=== PATIENT | male | born 1980 | race African-American/Black ===

== ENCOUNTER 2020-09-18 11:50 | Emergency (ER) | payer MEDICAID ==
[~2020-09-18] VITALS: Ht 182.9 cm; Wt 80.0 kg
[2020-09-18 12:19] VITALS: BP 125/82
== END 2020-09-18 13:23 | disposition home or self-care (01) ==
LOC: ER 11:51
DX: Z02.89 Encounter for other administrative examinations (principal); F15.90 Other stimulant use, unspecified, uncomplicated; F11.90 Opioid use, unspecified, uncomplicated
CPT/HCPCS: 99281

== ENCOUNTER → 2020-10-02 | Emergency (ER) | payer MEDICAID | END | disposition left against medical advice (07) | LOC: ER 15:03 | DX: Z02.89 Encounter for other administrative examinations (principal); F15.90 Other stimulant use, unspecified, uncomplicated; M54.89 Other dorsalgia; F12.90 Cannabis use, unspecified, uncomplicated; F11.90 Opioid use, unspecified, uncomplicated; Z72.89 Other problems related to lifestyle | CPT/HCPCS: 99283 ==

== ENCOUNTER 2020-10-07 10:00 | Emergency (ER) | payer MEDICAID ==
[~2020-10-07] VITALS: Ht 182.9 cm; Wt 88.6 kg
[2020-10-07 10:37] VITALS: BP 106/69
== END 2020-10-07 11:12 | disposition home or self-care (01) ==
LOC: ER 10:02
DX: Z00.00 Encounter for general adult medical examination without abnormal findings (principal); F12.90 Cannabis use, unspecified, uncomplicated; F15.90 Other stimulant use, unspecified, uncomplicated; Z72.89 Other problems related to lifestyle
CPT/HCPCS: 99281

== ENCOUNTER 2021-02-02 13:13 | Emergency (ER) | payer MEDICAID ==
[~2021-02-02] VITALS: Ht 182.9 cm; Wt 92.7 kg
[2021-02-02 13:21] VITALS: BP 122/74
== END 2021-02-02 16:12 | disposition home or self-care (01) ==
LOC: ER 13:14
DX: Z02.89 Encounter for other administrative examinations (principal); F15.10 Other stimulant abuse, uncomplicated; R00.0 Tachycardia, unspecified; F12.90 Cannabis use, unspecified, uncomplicated; F11.90 Opioid use, unspecified, uncomplicated; Z72.89 Other problems related to lifestyle
CPT/HCPCS: 99281

== ENCOUNTER 2021-03-08 07:01 | Emergency (ER) | payer MEDICAID ==
[~2021-03-08] VITALS: Ht 182.9 cm; Wt 87.3 kg
[2021-03-08 08:31] LABS: CLARITY,URINE CLOUDY (Clear); COLOR,URINE YELLOW (Yellow); UA COLLECTION TYPE CLN CATCH MIDSTREAM
[2021-03-08 08:32] LABS: GLUCOSE, URINE NEGATIVE (Neg); KETONES,URINE NEGATIVE (Neg); PROTEIN,URINE NEGATIVE (Neg)
[2021-03-08 08:33] LABS: NITRITES, URINE NEGATIVE (Neg); OCCULT BLOOD,URINE SMALL (Neg); UROBILINOGEN,URINE 0.2 E.U/dL (0.2-1.0)
[2021-03-08 08:34] LABS: LEUKOCYTE ESTERASE ,URINE SMALL (Neg); MUCUS STRANDS FEW /LPF (Neg); SQUAMOUS EPITHELIAL CELL,UR FEW /LPF (FEW)
[2021-03-08 08:35] LABS: BACTERIA,URINE FEW /HPF (Neg)
[2021-03-08 08:36] LABS: WBC,URINE 50-100 /HPF (0-4)
[2021-03-08] MEDS ORDERED: CefTRIAXone 1000mg IM Kit (w/lidocaine diluent) IM STA (09:04)
[2021-03-08] MEDS ORDERED: DOXY100C43 PO (09:10)
--- NOTE | 2021-03-08 09:28 | NUR ---
Pt phone number [phone]
--- NOTE | 2021-03-11 08:59 | NUR ---
Attempted to contact patient at listed number to inform regarding positive STD results. Patients number has been disconnected. Addendum: 03/11/21 at 0900 by RISA No other numbers listed to contact.
== END 2021-03-08 09:32 | disposition home or self-care (01) ==
LOC: ER 07:03
DX: A63.8 Other specified predominantly sexually transmitted diseases (principal); N34.2 Other urethritis; F17.210 Nicotine dependence, cigarettes, uncomplicated; F12.10 Cannabis abuse, uncomplicated; F15.10 Other stimulant abuse, uncomplicated; F14.10 Cocaine abuse, uncomplicated
CPT/HCPCS: 36415; 81001; 87088; 87491; 87591; 96372; 99283; J0696

== ENCOUNTER 2021-07-06 11:25 | Emergency (ER) | payer MEDICAID ==
[~2021-07-06] VITALS: Ht 185.4 cm; Wt 84.1 kg
[2021-07-06 11:52] VITALS: BP 126/65
== END 2021-07-06 13:08 | disposition home or self-care (01) ==
LOC: ER 11:26
DX: F15.10 Other stimulant abuse, uncomplicated (principal); F11.10 Opioid abuse, uncomplicated; F12.90 Cannabis use, unspecified, uncomplicated; Z72.89 Other problems related to lifestyle
CPT/HCPCS: 99281